=== PATIENT | male | born 1990 | race African-American/Black ===

== ENCOUNTER 2024-12-08 13:46 | Emergency (ER) | payer MEDICAID ==
[~2024-12-08] VITALS: Ht 170.2 cm; Wt 100.0 kg
[2024-12-08 13:54] VITALS: TEMP 98.5
[2024-12-08] MEDS ORDERED: ACET-66 PO (15:07)
[2024-12-08] MEDS ORDERED: BACI28.410 TP (15:07)
[2024-12-08] MEDS: HYDROGEN PEROXIDE 3% 118 ML SOLUTION TP ONE (15:39)
[2024-12-08] MEDS: ACETAMINOPHEN 500 MG TABLET PO ONE (15:39)
[2024-12-08] MEDS: PERTUSS(ACELL),DIPH,TET/PF 0.5 ML SYRINGE [ADULT] IM. ONE (15:40)
[2024-12-08] MEDS: BACITRACIN 0.9 GM PACKET OINTMENT TP ONE (15:41)
[2024-12-08 15:53] VITALS: BP 170/95; PULSE 75; RESP 18; O2SAT 98
== END 2024-12-08 15:54 | disposition home or self-care (01) ==
LOC: EMS 13:46
DX: S80.811A Abrasion, right lower leg, initial encounter (principal); W54.0XXA Bitten by dog, initial encounter; Y93.89 Activity, other specified; Y92.89 Other specified places as the place of occurrence of the external cause; Y99.8 Other external cause status
CPT/HCPCS: 90471; 90715; 99283